=== PATIENT | male | born 1930 | race Caucasian/White ===

== ENCOUNTER 2018-09-06 10:05 | Day surgery (SDC) | payer MEDICARE, OTHER ==
[~2018-09-06] VITALS: Ht 188 cm; Wt 98.1 kg
[2018-09-06] MEDS ORDERED: ALLO100T30 PO (10:40)
[2018-09-06] MEDS ORDERED: OMEP-110 PO (10:40)
[2018-09-06] MEDS ORDERED: AMLO5TAB7 PO (10:40)
[2018-09-06] MEDS ORDERED: LISI40TA PO (10:40)
[2018-09-06] MEDS ORDERED: OMEG1CAP34 PO (10:40)
[2018-09-06] MEDS ORDERED: HYDR-3341 PO (10:40)
[2018-09-06] MEDS ORDERED: DOXA4TAB3 PO (10:40)
[2018-09-06] MEDS ORDERED: LEVO50TA5 PO (10:40)
[2018-09-06] MEDS ORDERED: CHOL100012 PO (10:40)
[2018-09-06 11:10] VITALS: BP 107/58
[2018-09-06] MEDS ORDERED: LACTATED RINGERS 1,000 ML IV SCH (11:32)
[2018-09-06 11:37] VITALS: BP 107/58
[2018-09-06] MEDS ORDERED: PLEASE ENTER HEIGHT AND WEIGHT MC SCH (12:00)
[2018-09-06 12:04] LABS: CALCIUM 8.9 mg/dL (8.5-10.1); CHLORIDE 113 mmol/L (98-107)
[2018-09-06 12:10] LABS: ALANINE AMINOTRANSFERASE 39 U/L (12-78); ALBUMIN 3.4 g/dL (3.4-5.0); ALKALINE PHOSPHATASE 88 U/L (45-117); ANION GAP 11 mmol/L (5-15); BILIRUBIN,TOTAL 0.5 mg/dL (0.2-1.0); TOTAL PROTEIN 6.9 g/dL (6.4-8.2)
[2018-09-06] MEDS ORDERED: MIDAZOLAM 1 MG/ML, 2ML ONE (12:33)
[2018-09-06] MEDS ORDERED: FENTANYL PF 100 MCG/2ML ONE (12:33)
[2018-09-06] MEDS ORDERED: PROPOFOL 10 MG/ML, 20ML ONE (12:34)
[2018-09-06] MEDS ORDERED: MORPHINE SULFATE 4 MG/ML, 1ML IVPush PRN (13:00)
[2018-09-06] MEDS ORDERED: ONDANSETRON 2MG/ML, 2ML IV PRN (13:00)
[2018-09-06] MEDS ORDERED: FENTANYL PF 100 MCG/2ML IV PRN (13:00)
[2018-09-06] MEDS ORDERED: LABETALOL 5MG/ML, 20ML IV PRN (13:00)
[2018-09-06] MEDS ORDERED: hydrALAzine 20 MG/ML, 1ML IV PRN (13:00)
[2018-09-06] MEDS ORDERED: PROMETHAZINE 25 MG/ML, 1ML IV PRN (13:00)
== END 2018-09-06 15:10 | disposition home or self-care (01) ==
LOC: OUT 10:05
PROVIDERS: ATTEND Internal Medicine Geriatric Medicine
DX: K22.2 Esophageal obstruction (principal); K22.5 Diverticulum of esophagus, acquired; Z96.641 Presence of right artificial hip joint; Z96.652 Presence of left artificial knee joint; Z98.890 Other specified postprocedural states; Z87.891 Personal history of nicotine dependence
CPT/HCPCS: 36415; 43249; 80053; 93005; C1725; C1769; J2250; J2704; J3010